=== PATIENT | female | born 1990 | race Caucasian/White ===

== ENCOUNTER 2021-12-12 10:34 | Outpatient (CLI) | payer OTHER ==
[~2021-12-12] VITALS: Ht 157.5 cm; Wt 87.3 kg
[~2021-12-12 10:34] MED LIST: IRON SUCROSE 300 MG in NS 250 ML OVER 90 MIN. IV ONE
[2021-12-12 10:54] VITALS: BP 134/72
[2021-12-12 11:59] VITALS: BP 112/64
[2021-12-12 12:54] VITALS: BP 129/70
== END 2021-12-12 12:55 | disposition home or self-care (01) ==
LOC: M INFU 10:34
PROVIDERS: ATTEND Obstetrics & Gynecology
DX: O99.013 Anemia complicating pregnancy, third trimester (principal); D50.9 Iron deficiency anemia, unspecified; Z3A.29 29 weeks gestation of pregnancy
CPT/HCPCS: 96365; 96366; J1756

== ENCOUNTER 2021-12-28 09:02 | Outpatient (CLI) | payer OTHER ==
[~2021-12-28] VITALS: Ht 157.5 cm; Wt 90.0 kg
[2021-12-28 09:12] VITALS: BP 127/59
[2021-12-28 10:13] VITALS: BP 129/66
[2021-12-28 11:18] VITALS: BP 124/58
== END 2021-12-28 11:25 | disposition home or self-care (01) ==
LOC: M INFU 09:02
PROVIDERS: ATTEND Obstetrics & Gynecology
DX: O99.012 Anemia complicating pregnancy, second trimester (principal); D50.9 Iron deficiency anemia, unspecified; Z3A.29 29 weeks gestation of pregnancy
CPT/HCPCS: 96365; 96366; J1756

== ENCOUNTER 2022-02-16 21:33 | Inpatient (IN) | payer OTHER ==
[2022-02-16] VITALS (10 sets, daily range): BP systolic 89–131; BP diastolic 51–83
[~2022-02-16] VITALS: Ht 157.5 cm; Wt 95.3 kg
[2022-02-16] MEDS ORDERED: LACTATED RINGER'S 1000 ML IV STA (22:17)
[2022-02-16] MEDS ORDERED: LIDOCAINE 1% MDV 20ML VIAL INFIL PRN (22:20)
[2022-02-16] MEDS ORDERED: OXYTOCIN DRIP 30 UNITS in IV 1 EA IV PRN ×4 (22:20)
[2022-02-16] MEDS ORDERED: VITA100T59 PO (22:55)
[2022-02-16] MEDS ORDERED: FOLTTAB9 PO (22:55)
[2022-02-16] MEDS ORDERED: HOME MED LIST COMPLETE! XX SCH (23:00)
[2022-02-16 23:03] LABS: HEMATOCRIT 31.4 % (36.0-47.0); HEMOGLOBIN 10.5 g/dl (12.0-15.5); MEAN CORPUSCULAR HEMOGLOBIN 29.7 pg (27.0-33.0); MEAN CORPUSCULAR HGB CONC 33.4 g/dl (32.0-36.5); MEAN CORPUSCULAR VOLUME 88.7 fl (80.0-96.0); PLATELET COUNT, AUTOMATED 218 10^3/uL (150-450); RED BLOOD COUNT 3.54 10^6/uL (4.00-5.40)
[2022-02-16] MEDS ORDERED: FENTANYL 2MCG/ML ROPIVACAINE 0.2% IN 0.9% NACL 100ML IVBAG As Ordered ONE (23:23)
[2022-02-16] MEDS ORDERED: EPIDURAL COMMENT XX SCH (23:57)
[2022-02-16] MEDS ORDERED: LACTATED RINGER'S 1000 ML IV PRN (23:57)
[2022-02-16] MEDS ORDERED: diphenhydrAMINE 50MG/ML VIAL (J1200) IV PRN (23:57)
[2022-02-16] MEDS ORDERED: EPIDURAL/PCA KEYS XX PRN (23:57)
[2022-02-16] MEDS ORDERED: REFRIGERATOR IV KEYS XX PRN (23:57)
[2022-02-16] MEDS ORDERED: NALOXONE INJ 0.4MG/1ML VIAL (J2310 PER 1MG) IV PRN (23:57)
[2022-02-16] MEDS ORDERED: ONDANSETRON 4MG/2ML VIAL IV PRN (23:57)
[2022-02-17] VITALS (48 sets, daily range): BP systolic 86–135; BP diastolic 40–82
[2022-02-17] MEDS ORDERED: ePHEDrine SULFATE 25 MG/5 ML(5MG/ML) SYRINGE As Ordered ONE (00:12)
[2022-02-17] MEDS: LR 1,000 ML IV SCH ×2 (02:00→04:40)
[2022-02-17] MEDS: FENTANYL/ROPIVACAINE/NACL BAG 100 ML EPIDURAL SCH ×2 (02:00→09:27)
[2022-02-17] MEDS: ePHEDrine SULFATE 25 MG/5 ML(5MG/ML) SYRINGE IV PRN ×2 (03:09→03:14)
[2022-02-17] MEDS ORDERED: OXYTOCIN DRIP 30 UNITS in IV 1 EA IV SCH ×2 (04:55→10:40)
[2022-02-17] MEDS ORDERED: OXYTOCIN INJ 10 UNITS/ML VIAL (J2590) IV ONE ×2 (07:40→10:40)
[2022-02-17] MEDS ORDERED: ACETAMINOPHEN 500 MG TAB PO ONE (08:30)
[2022-02-17] MEDS: PRENATAL VITAMINS CHEWABLE TABLET PO SCH (09:00)
[2022-02-17] MEDS ORDERED: PRENATAL VITAMINS CHEWABLE TABLET PO SCH (09:00)
[2022-02-17] MEDS ORDERED: DOCUSATE SODIUM 100MG CAPSULE PO PRN (10:40)
[2022-02-17] MEDS ORDERED: DIBUCAINE 1% OINTMENT 30GM TOP PRN (10:40)
[2022-02-17] MEDS ORDERED: RHOGAM 300 MCG (1500 IU) INJ (J2790) IM SCH (10:40)
[2022-02-17] MEDS ORDERED: OXYTOCIN DRIP 30 UNITS in IV 1 EA IV ONE ×2 (10:40→14:50)
[2022-02-17] MEDS ORDERED: MEASLES,MUMPS,RUBELLA VACCINE INJ (MMR-II) (90707) SC SCH (10:40)
[2022-02-17] MEDS ORDERED: ACETAMINOPHEN 500 MG TAB PO PRN (10:40)
[2022-02-17] MEDS ORDERED: MOM 30ML SUSPENSION UDC PO PRN (10:40)
[2022-02-17] MEDS ORDERED: METHYLERGONOVINE MALEATE 0.2 MG TAB PO PRN (10:40)
[2022-02-17] MEDS ORDERED: ANUSOL HC CREAM 30GM TOP PRN (10:40)
[2022-02-17] MEDS ORDERED: ACETAMINOPHEN TAB 650MG DOSE (2X325MG) PO PRN (10:40)
[2022-02-17 10:57] LABS: CORD GAS ABE V -4.7; CORD GAS HCO3 V 21.5 MEQ/L; CORD GAS O2 SAT V 66.3 %; CORD GAS PCO2 V 43.4 mmHg; CORD GAS PH V 7.312 UNITS; CORD GAS PO2 V 29.5 mmHg; CORD GAS SBC V 19.9 MEQ/L; CORD GAS TCO2 V 22.8 MEQ/L
[2022-02-17] MEDS ORDERED: METHYLERGONOVINE MALEATE 0.2 MG/ML VIAL (J2210) IM STA (13:05)
[2022-02-17] MEDS: IBUPROFEN 600MG TAB PO PRN ×2 (13:18→19:33)
[2022-02-17] MEDS: METHYLERGONOVINE MALEATE 0.2 MG TAB PO SCH ×3 (15:30→22:59)
[2022-02-18] MEDS: METHYLERGONOVINE MALEATE 0.2 MG TAB PO SCH ×6 (03:03→22:49)
[2022-02-18 06:00] VITALS: BP 109/67
[2022-02-18 07:08] LABS: HEMATOCRIT 21.7 % (36.0-47.0); MEAN CORPUSCULAR HEMOGLOBIN 29.5 pg (27.0-33.0); MEAN CORPUSCULAR HGB CONC 33.2 g/dl (32.0-36.5); MEAN CORPUSCULAR VOLUME 88.9 fl (80.0-96.0); PLATELET COUNT, AUTOMATED 174 10^3/uL (150-450); RED BLOOD COUNT 2.44 10^6/uL (4.00-5.40); WHITE BLOOD COUNT 16.1 10^3/uL (4.0-10.0)
[2022-02-18 07:11] LABS: HEMOGLOBIN 7.2 g/dl (12.0-15.5)
[2022-02-18] MEDS: PRENATAL VITAMINS CHEWABLE TABLET PO SCH (08:53)
[2022-02-18 18:00] VITALS: BP 101/59
[2022-02-19] MEDS ORDERED: ACET-683 PO (02:44)
[2022-02-19] MEDS ORDERED: IBUP-1022 PO (02:44)
[2022-02-19] MEDS ORDERED: COLA100C5 PO (02:44)
[2022-02-19] MEDS: METHYLERGONOVINE MALEATE 0.2 MG TAB PO SCH ×3 (03:08→11:00)
[2022-02-19 06:00] VITALS: BP 94/53
[2022-02-19 06:42] LABS: HEMATOCRIT 22.6 % (36.0-47.0); HEMOGLOBIN 7.3 g/dl (12.0-15.5); MEAN CORPUSCULAR HEMOGLOBIN 29.3 pg (27.0-33.0); MEAN CORPUSCULAR HGB CONC 32.3 g/dl (32.0-36.5); MEAN CORPUSCULAR VOLUME 90.8 fl (80.0-96.0); PLATELET COUNT, AUTOMATED 172 10^3/uL (150-450); RED BLOOD COUNT 2.49 10^6/uL (4.00-5.40)
[2022-02-19] MEDS: PRENATAL VITAMINS CHEWABLE TABLET PO SCH (09:06)
== END 2022-02-19 11:25 | disposition home or self-care (01) | DRG 806 ==
LOC: M LDO 21:33 → M LDI 22:10 → M OBS 02-17 15:15
PROVIDERS: ADMIT Obstetrics & Gynecology; ATTEND Obstetrics & Gynecology
PROC: 10E0XZZ Delivery of Products of Conception, External Approach (ICD-10-PCS; principal; 2022-02-17)
PROC: 10907ZC Drainage of Amniotic Fluid, Therapeutic from Products of Conception, Via Natural or Artificial Opening (ICD-10-PCS; 2022-02-17)
DX: O99.844 Bariatric surgery status complicating childbirth (principal); Z37.0 Single live birth; K91.2 Postsurgical malabsorption, not elsewhere classified; O99.62 Diseases of the digestive system complicating childbirth; Z3A.39 39 weeks gestation of pregnancy

== ENCOUNTER → 2022-06-20 | Outpatient (CLI) | payer OTHER ==
[~2022-06-20] MED LIST changes: +ACET-683 PO; +B-12100011 SL; +COLA100C5 PO; +FOLTTAB9 PO; +IBUP-1022 PO; -IRON SUCROSE 300 MG in NS 250 ML OVER 90 MIN. IV ONE; +VITA100T59 PO
[2022-06-20 10:59] LABS: HEMATOCRIT 30.3 % (36.0-47.0); HEMOGLOBIN 8.6 g/dl (12.0-15.5); MEAN CORPUSCULAR HEMOGLOBIN 19.2 pg (27.0-33.0); MEAN CORPUSCULAR HGB CONC 28.4 g/dl (32.0-36.5); MEAN CORPUSCULAR VOLUME 67.6 fl (80.0-96.0); PLATELET COUNT, AUTOMATED 347 10^3/uL (150-450); RED BLOOD COUNT 4.48 10^6/uL (4.00-5.40); WHITE BLOOD COUNT 4.6 10^3/uL (4.0-10.0)
[2022-06-20 11:34] LABS: PERCENT SATURATION 3.2 % (13.2-45.0)
== END ==
LOC: M PLALAB 09:00
PROVIDERS: ATTEND Internal Medicine Hematology
DX: D50.8 Other iron deficiency anemias (principal)
CPT/HCPCS: 36415; 82607; 82728; 83550; 84466; 85027; 85046; G0463

== ENCOUNTER 2022-06-26 12:39 | Outpatient (CLI) | payer OTHER ==
[~2022-06-26] VITALS: Ht 157.5 cm; Wt 82.7 kg
[~2022-06-26 12:39] MED LIST changes: +ALBUTEROL SULFATE 2.5 MG/0.5 ML INH NEB SOLN INH PRN; -B-12100011 SL; +EPINEPHrine INJ 1 MG/ML 1ML AMP IM PRN; +diphenhydrAMINE 50MG/ML VIAL (J1200) IV PRN; +methylPREDNISolone 125MG 2ML VIAL IV PRN
[2022-06-26 12:45] VITALS: BP 136/60
[2022-06-26] MEDS ORDERED: NS 1,000 ML IV SCH (13:00)
[2022-06-26] MEDS ORDERED: FERRIC CARBOXYMALTOSE INJ 750 MG in NS 250 ML (>50kg) IV ONE ×3 (13:00)
[2022-06-26] MEDS ORDERED: B-12100011 SL (13:03)
[2022-06-26 13:55] VITALS: BP 127/78
== END 2022-06-26 14:10 | disposition home or self-care (01) ==
LOC: M INFU 12:39
PROVIDERS: ATTEND Internal Medicine Hematology
DX: D64.9 Anemia, unspecified (principal)

== ENCOUNTER 2022-07-10 13:00 | Outpatient (CLI) | payer OTHER ==
[~2022-07-10] VITALS: Ht 157.5 cm; Wt 83.9 kg
[~2022-07-10 13:00] MED LIST changes: +B-12100011 SL; +FERRIC CARBOXYMALTOSE INJ 750 MG in NS 250 ML (>50kg) IV ONE; +NS 1,000 ML IV SCH
== END 2022-07-10 14:20 | disposition home or self-care (01) ==
LOC: M INFU 13:00
PROVIDERS: ATTEND Internal Medicine Hematology
DX: D64.9 Anemia, unspecified (principal)
CPT/HCPCS: 96365; J1439

== ENCOUNTER → 2022-10-24 | Outpatient (CLI) | payer OTHER ==
[~2022-10-24] MED LIST changes: -ALBUTEROL SULFATE 2.5 MG/0.5 ML INH NEB SOLN INH PRN; -EPINEPHrine INJ 1 MG/ML 1ML AMP IM PRN; -FERRIC CARBOXYMALTOSE INJ 750 MG in NS 250 ML (>50kg) IV ONE; -NS 1,000 ML IV SCH; -diphenhydrAMINE 50MG/ML VIAL (J1200) IV PRN; -methylPREDNISolone 125MG 2ML VIAL IV PRN
[2022-10-24 11:10] LABS: HEMOGLOBIN 13.5 g/dl (12.0-15.5); MEAN CORPUSCULAR HEMOGLOBIN 28.9 pg (27.0-33.0); MEAN CORPUSCULAR HGB CONC 32.1 g/dl (32.0-36.5); MEAN CORPUSCULAR VOLUME 89.9 fl (80.0-96.0); PLATELET COUNT, AUTOMATED 204 10^3/uL (150-450); RED BLOOD COUNT 4.67 10^6/uL (4.00-5.40); WHITE BLOOD COUNT 5.5 10^3/uL (4.0-10.0)
[2022-10-24 11:45] LABS: THYROID STIMULATING HORMONE 0.886 uIU/ML (0.55-4.78); TOTAL 25(OH) VITAMIN D 14.7 NG/ML (20.0-100.0)
[2022-10-24 11:47] LABS: FERRITIN 68.4 NG/ML (7.3-270.7)
[2022-10-24 11:49] LABS: FREE T4 1.1 NG/DL (0.89-1.76)
== END ==
LOC: M PLALAB 07:57
PROVIDERS: ATTEND Internal Medicine Hematology
DX: D50.8 Other iron deficiency anemias (principal)

== ENCOUNTER → 2023-05-14 | Outpatient (CLI) | payer OTHER | LOC: M WUC 15:12 | PROVIDERS: ATTEND Nurse Practitioner Family | DX: M79.642 Pain in left hand (principal); S67.22XA Crushing injury of left hand, initial encounter; X58.XXXA Exposure to other specified factors, initial encounter; Y92.9 Unspecified place or not applicable; Y93.9 Activity, unspecified; Y99.9 Unspecified external cause status ==

== ENCOUNTER → 2023-12-23 | Outpatient (REF) | payer OTHER | LOC: M WUC 17:51 | PROVIDERS: ATTEND Physician Assistant | DX: N30.01 Acute cystitis with hematuria (principal) ==